=== PATIENT | male | born 1955 | race Caucasian/White ===

== ENCOUNTER 2024-01-23 14:08 | Emergency (ER) | payer MEDICARE, SELFPAY ==
[2024-01-23 14:16] VITALS: BP 157/94
--- NOTE | 2024-01-23 15:31 | ED.GENMED ---
History of Present Illness
General
Chief Complaint: Musculo-Skeletal Complaint
Source: patient
Time Seen by Provider: 01/23/24 14:31
History of Present Illness
History of Present Illness:
68-year-old male with past medical history of hypertension presenting emergency department for evaluation after sustaining left leg injury while [place] [employer] and while fixing a step excellently fell through the step causing significant
abrasion to the left leg. Patient noted swelling to the leg which she states has since gone down significantly but still noting the abrasion. Patient is unsure of his last tetanus. No other injuries were sustained.
Past History
Past History
ED Past Medical History: HTN
ED Past Surgical History: None
Social History
Tobacco: Non-smoker
Alcohol: None
Drug: None
Personal:
Living: with family
Review of Systems
Review of Systems
All Other Systems: ROS reviewed and negative except as documented in HPI and ROS
Phy Exam
Physical Exam
Physical Exam:
GENERAL: Alert , in no apparent distress
EYE: conjunctiva clear
Head: Normocephalic atraumatic
NECK: Supple,
ENT: mmm.
LUNGS: no acute respiratory distress
NEUROLOGICAL: Alert and oriented
SKIN: Warm and dry, multiple superficial abrasions to the left inner thigh and upper gastrocnemius region. There is also abrasion to the left upper arm. No active bleeding
MUSCULOSKELETAL: well perfused.
PSYCH: Normal and appropriate interaction.
Scores
Heart Failure Risk
Heart Failure Risk Score: Not Applicable
Heart Score for Chest Pain Patients
STEMI patient?: Not applicable
Withdrawal Assessment of Alcohol
Withdrawal Assessment Completed?: Not applicable
Course
Orders/Labs/Results
Orders:
Orders
01/23/24 14:19
Tib/Fib, Left 2 View [CR Leg Tibia/fibula Left 2 Vw] Urgent
Comment:
Reason For Exam: FALL
01/23/24 15:31
Tetanus/Diphth/Acelpertussis [Adacel] 0.5 ml IM .ONCE ONE
Vital Signs
Initial and Last Documented VS:
Initial Vital Signs
Temp Pulse Resp BP Pulse Ox
98.2 F 75 19 157/94 98
01/23/24 14:16 01/23/24 14:16 01/23/24 14:16 01/23/24 14:16 01/23/24 14:16
Last Documented Vital Signs
Temp Pulse Resp BP Pulse Ox
98.2 F 75 19 157/94 98
01/23/24 14:16 01/23/24 14:16 01/23/24 14:16 01/23/24 14:16 01/23/24 14:16
MDM/Problems Addressed
Differential Diagnosis Includes:
Abrasion, contusion, fracture
MDM/Problems Addressed:
68-year-old male present emergency department for evaluation after sustaining multiple abrasions to the left lower extremity. X-ray was ordered from triage and was ultimately negative for any fracture. Will update patient's tetanus. He was able
to ambulate without any assistance or difficulty. He is otherwise stable for discharge home.
*Radiology
Radiology exam reviewed: preliminary read by ED provider (No fracture)
*Pulse Oximetry
Patient hypoxic: no
*Critical Care Note
Total Time (30-74mins, 75-104mins- exclusive of procedures): Not Applicable
ED Attending Note
-
Portions of this chart may have been created with voice recognition software.� Occasional wrong word or��sound alike� substitutions may have occurred due to the inherent limitations of voice recognition software.
Discharge Plan
Departure
Patient Disposition: Home (Routine Discharge)
Date of Disposition: 01/23/24
Time of Disposition: 15:31
Patient with high blood pressure during this ER visit?: Yes
Discharge Problem:
Abrasion of left leg
Instructions: Wound Care ED
Interventions
Interventions:
*Risk Screen - Suicide Last Done: 01/23/24 14:16
*General Assessment Last Done: 01/23/24 14:16
*Neglect/Abuse Screening Last Done: 01/23/24 14:16
*ED COVID-19 Vaccine History Last Done: 01/23/24 14:16
*Nursing Disposition Last Done: 01/23/24 15:52
ED-Musculoskeletal Assessment Last Done: 01/23/24 15:50
Discharge Date and Time
Print Language: OCCITAN
[2024-01-23] MEDS: ADACEL 0.5 ML IM (15:48)
[2024-01-23 15:52] VITALS: BP 131/81
== END 2024-01-23 15:53 | disposition home or self-care (01) ==
LOC: EMR 14:08
PROVIDERS: EMERGENCY PHYSICIAN Emergency Medicine; FAMILY PHYSICIAN Physician Assistant Medical
DX: S80.812A Abrasion, left lower leg, initial encounter (principal); S70.312A Abrasion, left thigh, initial encounter; S40.812A Abrasion of left upper arm, initial encounter; W19.XXXA Unspecified fall, initial encounter; Y93.H3 Activity, building and construction; Y92.22 Religious institution as the place of occurrence of the external cause; Z23 Encounter for immunization; I10 Essential (primary) hypertension
CPT/HCPCS: 99283; 90471; 73590; 90715